=== PATIENT | female | born 1990 | race Caucasian/White ===

== ENCOUNTER 2021-12-19 13:57 | Inpatient (IN) | payer OTHER ==
[2021-12-19 14:50] VITALS: BMI 25.1
[2021-12-22 07:45] VITALS: BP 137/66; TEMP 98.6
== END 2021-12-22 13:20 | disposition home or self-care (01) | DRG 787 ==
LOC: CSHLD/OP 13:57 → CSHLD 14:57 → CSHPED 18:40
PROVIDERS: ADMIT Obstetrics & Gynecology; ATTEND Obstetrics & Gynecology
PROC: 10D00Z1 Extraction of Products of Conception, Low, Open Approach (ICD-10-PCS; principal; 2021-12-19)
DX: O45.93 Premature separation of placenta, unspecified, third trimester (principal); O99.324 Drug use complicating childbirth; D62 Acute posthemorrhagic anemia; F11.20 Opioid dependence, uncomplicated; Z3A.36 36 weeks gestation of pregnancy; Z37.0 Single live birth; F17.210 Nicotine dependence, cigarettes, uncomplicated; O99.334 Smoking (tobacco) complicating childbirth; O76 Abnormality in fetal heart rate and rhythm complicating labor and delivery; O62.2 Other uterine inertia; O90.81 Anemia of the puerperium; Z20.822 Contact with and (suspected) exposure to COVID-19; F19.10 Other psychoactive substance abuse, uncomplicated
CPT/HCPCS: 36415; 51702; 71046; 80306; 82805; 85027; 85049; 85300; 85362; 85379; 85384; 85610; 85730; 86580; 86780; 86850; 86900; 86901; 87340; 87389; 88307; 94640; 99285; J0456; J0690; J1885; J2210; J2250; J2704; J3010; J3490; J7611; U0002